=== PATIENT | male | born 1990 | race African-American/Black ===

== ENCOUNTER 2017-09-04 10:38 | Emergency (ER) | payer SELFPAY ==
[2017-09-04 10:52] VITALS: BP 137/58; PULSE 85; TEMP 98.2; BMI 37.1
--- NOTE | 2017-09-04 12:30 | PDOC ---
History of Present Illness - General Chief Complaint: Respiratory Stated Complaint: BODYACHES, NAUSEA, COUGH Time Seen by Provider: 09/04/17 12:12 History Source: Patient Exam Limitations: No Limitations - History of Present Illness Initial Comments: 09/04/17 12:25 Patient returned recently from [place] last Monday, and states had onset of fevers that night, since then has had chills, body aches, sore throat pain, and a moist nonproductive cough. Has not used any medications for relief of symptoms , no one else at home that is ill. Timing/Duration: reports: getting worse Severity: reports: mild, moderate Associated Symptoms: reports: cough, dizziness, facial pain, fever/chills, lightheadedness, nasal congestion, sore throat Past History - Travel Traveled outside of the country in the last 30 days: No Close contact w/someone who was outside of country & ill: No - Past Medical History Allergies/Adverse Reactions: Allergies Allergy/AdvReac Type Severity Reaction Status Date / Time Penicillins Allergy Verified 09/04/17 10:52 Home Medications: Ambulatory Orders NK [No Known Home Medication] 09/04/17 COPD: No Other medical history: DENIES MEDICAL HX - Suicide/Smoking/Psychosocial Hx Smoking History: Never smoked Hx Alcohol Use: No Drug/Substance Use Hx: Yes Substance Use Type: Marijuana Review of Systems - Review of Systems Able to Perform ROS?: Yes Is the patient limited French proficient: Yes Constitutional: Yes: Symptoms Reported, See HPI, Chills, Fever, Malaise Respiratory: Yes: Symptoms reported, See HPI, Cough, Wheezing ABD/GI: Yes: Symptoms Reported, See HPI Musculoskeletal: Yes: Symptoms Reported, See HPI. No: Muscle Pain Integumentary: Yes: Symptoms Reported, See HPI All Other Systems: Reviewed and Negative *Physical Exam - Vital Signs Last Vital Signs Temp Pulse Resp BP Pulse Ox 98.2 F 85 16 137/58 98 09/04/17 10:49 09/04/17 10:49 09/04/17 10:49 09/04/17 10:49 09/04/17 10:49 - Physical Exam Comments: 09/04/17 12:33 GENERAL: [The child is awake, alert, and appropriately interactive.] EYES: [The pupils are equal, round, and reactive to light, with clear, conjunctiva.but glassy] NOSE: [The nose with clear drainage EARS: [The ear canals and tympanic membranes are congested but landmarks easily visualed ] THROAT: [The oropharynx is clear with erythema, no exudates. The mucous membranes are moist.] NECK: [The neck is supple with mildly tender adenopathy, no menigemous] CHEST: [The lungs are coarse but clear without crackles, or wheezes.] HEART: [Heart is regular rhythm, with normal S1 and S2, no murmurs.] ABDOMEN: [The abdomen is soft and nontender with normal bowel sounds. There is no organomegaly and no mass. There is no guarding or rebound.] EXTREMITIES: [Extremities are normal.] NEURO: [Behavior is normal for age.cranky but easily,m Tone is normal.] SKIN: [Skin is unremarkable without rash or swelling. There is no bruising, and there are no other signs of injury.] 09/04/17 12:33 General Appearance: Yes: Nourished, Appropriately Dressed, Apparent Distress, Mild Distress HEENT: positive: SERGIO Progress Note - Progress Note Progress Note: Upper respiratory infection, probable influenza however too late to treat with Tamiflu. We'll continue conservative measures *DC/Admit/Observation/Transfer Diagnosis at time of Disposition: Influenzal acute upper respiratory infection - Discharge Dispostion Disposition: HOME Condition at time of disposition: Stable Admit: No - Referrals - Patient Instructions Printed Discharge Instructions: DI for Viral Upper Respiratory Infection -- Adult Additional Instructions: Rest, drink lots of fluids: Teas, water, soups, Pedialyte Saltwater gargles Steamy showers/seem to face break up mucus Old-fashioned treatments help! Avoid contact with others until fevers and cough resolved as this is very contagious Lots of handwashing and good hygiene Continue [id number] medications for symptomatic relief Tylenol or Motrin for fever and pain Followup with private physician in one to 2 days as needed or if worsening Return to emergency department for worsened symptoms, fevers, dehydration Influenza takes between 5 and 7 days for resolution To not participate in any activity, work, or school until fevers and cough are gone for at least one day - Post Discharge Activity Forms/Work/School Notes: Back to Work
[2017-09-04] MEDS ORDERED: IBUPROFEN 600 MG TABLET (FP) PO ONE ×2 (12:32→12:33)
== END 2017-09-04 12:36 | disposition home or self-care (01) ==
LOC: JERFT 10:38
DX: J06.9 Acute upper respiratory infection, unspecified (principal)
CPT/HCPCS: 99281-25

== ENCOUNTER 2023-12-20 18:21 | Emergency (ER) | payer OTHER ==
[2023-12-20 18:57] VITALS: BP 115/73; PULSE 74; RESP 18; TEMP 98; BMI 36.0
[2023-12-20] MEDS ORDERED: METHOCARBAMOL 500 MG TABLET ONE (20:20)
[2023-12-20] MEDS ORDERED: ACETAMINOPHEN 500 MG TABLET (FP) ONE (20:20)
[2023-12-20] MEDS ORDERED: KETOROLAC TROMETHAMINE 30 MG/1 ML VIAL ONE (20:20)
[2023-12-20] MEDS: METHOCARBAMOL 750 MG TABLET PO ONE (20:24)
[2023-12-20] MEDS: ACETAMINOPHEN 500 MG TABLET (FP) PO ONE (20:24)
[2023-12-20] MEDS: KETOROLAC TROMETHAMINE 30 MG/1 ML VIAL IM ONE (20:24)
== END 2023-12-20 20:57 | disposition home or self-care (01) ==
LOC: JERFT 18:21
PROC: 3E0133Z Introduction of Anti-inflammatory into Subcutaneous Tissue, Percutaneous Approach (ICD-10-PCS; principal; 2023-12-20)
DX: M54.50 Low back pain, unspecified (principal); X50.0XXA Overexertion from strenuous movement or load, initial encounter; Y99.0 Civilian activity done for income or pay
CPT/HCPCS: 99284-25